=== PATIENT | female | born 1940 | race Caucasian/White ===

== ENCOUNTER 2023-04-29 13:15 | Emergency (ER) | payer MEDICARE ==
[~2023-04-29] VITALS: Ht 149.9 cm; Wt 56.8 kg
[~2023-04-29 13:15] MED LIST: APIX5TAB PO; LISI-658 PO
[2023-04-29 13:25] VITALS: BP 176/61; PULSE 66; RESP 16; TEMP 97.8
== END 2023-04-29 13:43 | disposition home or self-care (01) ==
LOC: EMS 13:26
DX: I10 Essential (primary) hypertension (principal); E78.00 Pure hypercholesterolemia, unspecified
CPT/HCPCS: 99281; Z7502